=== PATIENT | female | born 1980 | race Two or more races ===

== ENCOUNTER 2019-10-27 20:40 | Inpatient (IN) | payer SELFPAY ==
[~2019-10-27] VITALS: Ht 157.5 cm; Wt 54.6 kg
--- NOTE | ~2019-10-27 | HEMODYNAMI ---
PATIENT:BEN BARNETT MEDICAL RECORD: [id number] : 82 LOCATION:D.MS [id number] ADMISSION DATE: 10/28/19 Generatedon:11/04/20199:15 Patient name: BEN BARNETT Patient #: [id number] SSN: D OB: 1980 Date of study: 11/04/2019 Page: Of Hemodynamic Procedure Report Patient Data Patient Demographics Procedure consent was obtained First Name: BEN Gender: Female Last Name: ERICKA : 1980 Patient #: [id number] Age: 39 year(s) Race: Other Additional ID: [id number] Contact details Address: [address] [place], [place] [address] State: [place] City: [place] Zip code: [address] Past Medical History Allergies: No known allergies Admission Admission Data Admission Date: 10/28/2019 Admission Time: 3:03 Room #: 2239 Height (in.): 62 BSA: 1.56 (m2) Height (cm.): 157.48 BMI: 22.68 (kg/m2) Weight (lbs.): 124 Weight (kg.): 56.25 Procedure Procedure Types Cath Procedure Peripheral Cath Diagnostic Procedure Remote Medical Coder Peripheral Procedures Abscess Abscessogram Procedure Description Procedure Date Procedure Date: 11/04/2019 Procedure Start Time: 9:06 Procedure Staff Name Function Radha Rivera MD Performing Physician Elysia Gill RT Oxygen Therapy Technician Jani CONTRERAS RN Nurse JENNIFER MENDEZ RT Scrub Procedure Data Cath Procedure Fluoroscopy Diagnostic fluoroscopy Total fluoroscopy Time: 1.3 time: 1.3 min min Diagnostic fluoroscopy Total fluoroscopy dose: 23 dose: 23 mGy mGy Contrast Material Contrast Material Type Amount (ml) Isovue 300 10 Procedure Medications Medication Administration Route Dosage Fentanyl I.V. 50 mcg Versed I.V. 1 mg Fentanyl I.V. 50 mcg Versed I.V. 1 mg Hemodynamics Rest BSA: 1.56 (m2) O2 Consumption: Estimated: 160.89 (ml/min) O2 Consumption indexed : Estimated:103.13 (ml/min/m) Heart Rate: 71 (bpm) Snapshots Pre Cath Intra NCS Post Cath Vital Signs Time Heart Resp SPO2 etCO2 NIBP (mmHg) Rhythm Pain Sedation Rate (ipm) (%) (mmHg) Status Level (bpm) 8:59:21 73 14 98 24.8 Measuring NSR 0 (11) 9(A) , No pain 8:59:43 77 7 99 34.6 124/83(108) NSR 0 (11) 9(A) , No pain 9:04:30 74 2 100 33.8 133/88(108) NSR 0 (11) 9(A) , No pain 9:08:36 80 8 100 34.5 129/89(117) NSR 0 (11) 9(A) , No pain 9:12:46 72 23 99 42.1 116/72(101) NSR 0 (11) 9(A) , No pain Medications Time Medication Route Dose Verified Delivered Reason Notes Effectivenes s by by 9:08:54 Fentanyl I.V. 50 M J Long Minner for mcg BEN sedation RN 9:09:10 Versed I.V. 1 mg M J Long Minner for BEN sedation RN 9:11:48 Fentanyl I.V. 50 M J Long Minner for mcg BEN sedation RN 9:11:52 Versed I.V. 1 mg M J Long Minner for MD BEN sedation admissions supervisor Log Time Note 8:11:35 Patient Height : 62 inches 8:11:38 Patient Weight : 124 lbs 8:12:11 Use device set IR Diagnostic 8:12:13 Tegaderm 4 x 4 ([id number]) opened to sterile field. 8:12:14 Sterile Angiographic Pack opened to sterile field. 8:12:15 Bag Decanter () opened to sterile field. 8:12:21 8:56:53 Time tracking: Regular hours (M-F 7:00 - 5:00) 8:57:05 Plan of Care:Hemodynamics will remain stable., Cardiac rhythm will remain stable., Comfort level will be maintained., Respiratory function will remain adequate., Patient/ family verbilizes understanding of procedure., Procedure tolerated without complication., Recovers from procedure without complications.. 8:57:11 Patient received from Med/Surg to IR Alert and oriented. Tansferred to table in Supine position. 8:57:13 Signed procedure consent form obtained from patient. 8:57:27 ECG and BP/O2 sat monitors applied to patient. 8:57:31 Vital chart was started 8:58:01 Baseline sample Acquired. 8:58:05 Full Disclosure recording started 8:58:06 8:58:10 H&P Date Dictated: 11/04/2019 Within 30 days and on chart.. 8:58:12 Pre-procedure instructions explained to patient. 8:58:12 Pre-op teaching completed and patient verbalized understanding. 8:58:17 Family unavailable. 8:58:19 Patient NPO since Midnight. 8:58:28 Patient allergic to No known allergies 8:58:36 Is the patient allergic to Iodine/contrast media? No. 9:00:11 Is patient on blood thinner?No 9:00:13 Patient diabetic? No. 9:00:15 9:00:16 ----Pre-sedation anethsthesia assessment.---- 9:00:19 Previous problem with sedation/anesthesia? No ? 9:00:22 Snore? No 9:00:24 Sleep apnea? No 9:00:26 Deviated septum? No 9:00:29 Opens mouth fully? Yes 9:00:31 Sticks out tongue? Yes 9:00:35 Airway obstruction? No ? 9:00:40 Dentures? No ? 9:00:42 9:00:50 Right abdomen area was prepped with chlora-prep and draped in sterile fashion 9:00:59 Left abdomen area was prepped with chlora-prep and draped in sterile fashion 9:01:00 9:05:52 GLIDE WIRE ANGLE 180cm ([id number]) opened to sterile field. 9:06:10 Physician arrived 9:06:11 --------ALL STOP TIME OUT------ 9:06:11 Final Timeout: patient, procedure, and site verified with staff and physician. All members of the team are in agreement. 9:06:24 Fire Safety Assessment: A--An alcohol-based skin anteseptic being used preoperatively., C--Open oxygen or nitrous oxide is being used. 9:06:32 Procedure started. 9:06:38 Local anesthetic to Abdominal area with Lidocaine 1% by Radha Rivera MD.INITIAL ACCESS ONLY 9:06:58 9:07:06 2) 60-89 Mildly reduced kidney function, and other findings (as for stage 1) point to kidney disease. 9:08:54 Fentanyl 50 mcg I.V. was administered by Minner BEN RN; for sedation; Verbal order read back and verified. 9:09:10 Versed 1 mg I.V. was administered by Jani CONTRERAS RN; for sedation; Verbal order read back and verified. 9:11:48 Fentanyl 50 mcg I.V. was administered by Jani CONTRERAS RN; for sedation; Verbal order read back and verified. 9:11:52 Versed 1 mg I.V. was administered by Jani CONTRERAS RN; for sedation; Verbal order read back and verified. 9:12:35 injected both drains and removed 9:12:43 Procedure ended.(Physican Out) 9:13:18 Fluoroscopy time 01.30 minutes. 9:13:25 Fluoroscopy dose: 23 mGy 9:13:25 Flurop Dose total: 23 9:13:30 Contrast amount:Isovue 300 10ml. 9:13:33 Procedure and supply charges have been captured, reviewed, submitted and are correct. 9:14:39 Report given to Med/Surg. 9:15:07 Vital chart was stopped Device Usage Item Name Manufacture Quantity Catalog Hospital Part Current Minimal Lot# / Number Charge Number Stock Stock Serial# Code Tegaderm 4 x 3M 1 [id number] (1626W) Sterile Cardinal 1 [id number] 5 Angiographic Health Pack Bag Decanter Microtek 1 2001S [id number] 5 (2001S) [employer] GLIDE WIRE Terumo 1 [id number] 5 ANGLE 180cm ([id number]) Signature Audit [place] Stage Time Signature Unsigned Intra-Procedure 11/04/2019 Elysia Gill 9:15:02 AM RT(R) [facility] [address] [place] [address]
[2019-10-27 22:36] LABS: ANION GAP 12.8 mmol/L (8-16); CALCIUM 9.2 mg/dL (8.5-10.1); CARBON DIOXIDE 29.2 mmol/L (21.0-32.0); CREATININE - SERUM 0.9 mg/dL (0.6-1.3)
[2019-10-27 22:38] LABS: HEMATOCRIT 36.7 % (36.0-48.0); HEMOGLOBIN 11.9 g/dL (12-16); MCH 26.8 pg (26.0-34.0); MCHC 32.4 g/dL (31.0-37.0); MCV 82.7 fL (80.0-100.0); MEAN PLATELET VOLUME 9.7 fL (7.4-10.4); PLATELET COUNT 799 10x3/uL (130-400); RBC 4.44 10x6/uL (4.00-5.40); RDW 14.2 % (11.5-14.5); WBC 25.5 10x3/uL (4.8-10.8)
[2019-10-27 22:42] LABS: ALBUMIN 2.5 g/dL (3.4-5.0); BILIRUBIN - TOTAL 0.54 mg/dL (0.2-1.3); PROTEIN - SERUM 9.5 g/dL (6.4-8.2)
[2019-10-27 23:11] LABS: BASOPHILS 1 % (0-2); EOSINOPHILS 1 % (0-7); LYMPHOCYTES 9 % (15-50); MONOCYTES 4 % (2-11); NEUTROPHILS 85 % (40-80); PLATELET ESTIMATE INCREASED
[2019-10-27 23:29] LABS: BILIRUBIN NEGATIVE (NEGATIVE); GLUCOSE NEGATIVE (NEGATIVE); KETONE MODERATE mg/dL (NEGATIVE); NITRITE NEGATIVE (NEGATIVE); UROBILINOGEN NORMAL (NORMAL)
[2019-10-27 23:31] LABS: BACTERIA MODERATE /hpf (NEGATIVE); EPITHELIAL CELLS 0-5 /hpf (0-5); RED CELLS - URINE 0-5 /hpf (0-5)
[2019-10-28] VITALS (8 sets, daily range): BP systolic 88–117; BP diastolic 56–87; Ht 157.5 cm; Wt 54.6 kg
--- NOTE | 2019-10-28 04:44 | NUR ---
ADMISSION ASSESSMENT AND HISTORY COMPLETE. RHIC SYSTEMS SAFETY ENGINEER PHONE IN ROOM IF NEEDED...FRIEND AT BEDSIDE THAT CAN TRANSLATE ALSO.
--- NOTE | 2019-10-28 04:45 | NUR ---
PT NPO UNTIL SEEN BY SURGEON.
[2019-10-28 06:21] LABS: APTT 35.5 SECONDS (22.8-39.4); INR 1.33 (0.85-1.17); PROTIME 16.4 SECONDS (11.6-15.0)
[2019-10-28 06:24] LABS: CALC OSMOLALITY 276 mosm/kg (275-300); CALCIUM 7.3 mg/dL (8.5-10.1); CARBON DIOXIDE 27.2 mmol/L (21.0-32.0); CHLORIDE - SERUM 102 mmol/L (98-107); CREATININE - SERUM 0.7 mg/dL (0.6-1.3); GLUCOSE 130 mg/dL (74-106); MAGNESIUM - SERUM 2.4 mg/dL (1.8-2.4); PHOSPHOROUS 4.4 mg/dL (2.5-4.9); POTASSIUM - SERUM 3.9 mmol/L (3.5-5.1); SODIUM 138 mmol/L (136-145); UREA NITROGEN 9 mg/dL (7-18); eGFR NON AFRICAN AMERICAN > 90 mL/min (90-120)
[2019-10-28 06:28] LABS: BASOPHILS 0.2 % (0-2); EOSINOPHILS 0 % (0-7); HEMOGLOBIN 9.3 g/dL (12-16); IMMATURE GRANULOCYTES 1.6 % (0-5); LYMPHOCYTES 10.3 % (15-50); MCH 26.4 pg (26.0-34.0); MCHC 32.1 g/dL (31.0-37.0); MCV 82.4 fL (80.0-100.0); MEAN PLATELET VOLUME 9.5 fL (7.4-10.4); MONOCYTES 7.9 % (2-11); PLATELET COUNT 648 10x3/uL (130-400); RBC 3.52 10x6/uL (4.00-5.40); RDW 14.4 % (11.5-14.5)
--- NOTE | 2019-10-28 07:47 | NUR ---
ALERT AND ORIENTED. LUNGS CLEAR BILATERALLY. HEART SOUNDS S1 AND S2 HEARD IN ALL PARRA. BOWEL SOUNDS ACTIVE X 4. IV TO LFA PATENT WITHOUT REDNESS. DENIES NEEDS. BED LOW. CALL GANDARA AND PERSONAL ITEMS IN REACH. WILL CONTINUE TO MONITOR.
--- NOTE | 2019-10-28 09:57 | NUR ---
CONSENTS OBTAINED FOR BLOOD. PATIENT AND FRIEND AT BEDSIDE DENY FURTHER QUESTIONS.
--- NOTE | 2019-10-28 10:46 | NUR ---
BLOOD TRANSFUSION UNIT 1 INITIATED. VITALS STABLE.
--- NOTE | 2019-10-28 13:45 | NUR ---
BLOOD TRANSFUSION UNIT 1 COMPLETE. VITALS STABLE.
--- NOTE | 2019-10-28 13:50 | NUR ---
BLOOD TRANSFUSION UNIT 2 INTIATED. VITALS STABLE.
--- NOTE | 2019-10-28 17:17 | NUR ---
BLOOD TRANSFUSION UNIT 2 COMPLETE. VITALS STABLE.
--- NOTE | 2019-10-28 21:12 | NUR ---
WAS MEDICATED WITH MORPHINE FOR C/O ABD PAIN. C/L IN REACH AT BEDSIDE.
[2019-10-29] VITALS (12 sets, daily range): BP systolic 83–107; BP diastolic 53–69
[2019-10-29 05:45] LABS: HEMATOCRIT 36.6 % (36.0-48.0); HEMOGLOBIN 11.9 g/dL (12-16); MCH 27.4 pg (26.0-34.0); MCHC 32.5 g/dL (31.0-37.0); MCV 84.1 fL (80.0-100.0); MEAN PLATELET VOLUME 9.1 fL (7.4-10.4); PLATELET COUNT 592 10x3/uL (130-400); RBC 4.35 10x6/uL (4.00-5.40); RDW 14.6 % (11.5-14.5); WBC 24.5 10x3/uL (4.8-10.8)
[2019-10-29 05:53] LABS: ANION GAP 12.7 mmol/L (8-16); CALCIUM 7.8 mg/dL (8.5-10.1); CARBON DIOXIDE 25.9 mmol/L (21.0-32.0); MAGNESIUM - SERUM 1.9 mg/dL (1.8-2.4); PHOSPHOROUS 3.5 mg/dL (2.5-4.9); POTASSIUM - SERUM 3.6 mmol/L (3.5-5.1)
[2019-10-29 05:54] LABS: CREATININE - SERUM 0.9 mg/dL (0.6-1.3)
--- NOTE | 2019-10-29 07:24 | NUR ---
I have reviewed this patient and I concur with the Shift Assessment completed by the Licensed Practical Nurse today this shift.
[2019-10-29 08:03] LABS: APTT 37.8 SECONDS (22.8-39.4); INR 1.23 (0.85-1.17); PROTIME 15.4 SECONDS (11.6-15.0)
[2019-10-29 08:06] LABS: HCG SERUM NEGATIVE (NEGATIVE)
[2019-10-29 08:24] LABS: LYMPHOCYTES 13 % (15-50); MONOCYTES 4 % (2-11); NEUTROPHILS 81 % (40-80); PLATELET ESTIMATE INCREASED
--- NOTE | 2019-10-29 09:21 | NUR ---
PT IS OUT TO IR.
--- NOTE | 2019-10-29 11:04 | NUR ---
PT BACK FROM IR WITH BILAT PELVIC DRAINS. RESTING COMFORTALY, FREQUENT VITALS, WHICH ARE CURRENTLY STABLE. TAKING IN CLEAR LIQUIDS, TOLERATING. DRESSINGS C/D/I. DENIESE ANY NEEDS. WILL CONTINUE TO MONITOR.
--- NOTE | 2019-10-29 14:29 | NUR ---
EMPTIED 125 ML OF PURLUENT BROWN LIQUID FROM LEFT DRAIN 175 ML OF PURLUENT BROWN LIQUID FROM RIGHT DRAIN. FLUSHED EACH DRAIN WITH 10 CC FLUSH PER ORDER. PT RESTING COMFORTABLY IN BED. DENIES ANY NEEDS. WILL CONTINUE TO MONITOR. REMOVED IV FROM LEFT UPPER ARM DUE TO PAIN PER PT STATEMENT. CATHETER TIP INTACT. NEW 18 GA STARTED IN THE RIGHT HAND. TOLERATED WELL
--- NOTE | 2019-10-29 15:40 | NUR ---
PT ALERT AND ORIENTED UPON ENTERING. ASSISTED PT TO BATHROOM AND BACK TO BED, MINIMAL ASIST. ADMINISTERED IV MEDICATION AND PRN TYLENOL FOR INCISION PAIN. DENIES ANY OTHER NEEDS. LEFT RESTING COMFORTABLY. WILL CONTINUE TO MONITOR.
--- NOTE | 2019-10-29 17:29 | NUR ---
HUNG IV ABX, RESTING COMFORTABLY. DENIES ANY NEEDS. WILL CONTINUE TO MONITOR.
--- NOTE | 2019-10-29 19:40 | NUR ---
AMBULATING TO BR TO VOID. DRAIN NOTED TO RT AND LT ABD WITH BLOODY/BROWN DRAINAGE IN BAG. DENIES PAIN. DRSGS INTACT. GEN WEAKNESS NOTED. NS @ 100 MLHR INFUSING IN RT HAND. RESP EVEN AND NONLABORED. NO DISTRESS. ALERT AND ORIENTED X4. SR ELEVATED X2. CL IN REACH.
--- NOTE | 2019-10-30 04:58 | NUR ---
LYING IN BED. DENIES PAIN. NO DISTRESS. CL IN REACH.
[2019-10-30 05:39] LABS: BASOPHILS 0.2 % (0-2); EOSINOPHILS 0.1 % (0-7); HEMATOCRIT 32.4 % (36.0-48.0); HEMOGLOBIN 10.5 g/dL (12-16); IMMATURE GRANULOCYTES 1.2 % (0-5); LYMPHOCYTES 10.3 % (15-50); MCH 27.1 pg (26.0-34.0); MCHC 32.4 g/dL (31.0-37.0); MCV 83.7 fL (80.0-100.0); MEAN PLATELET VOLUME 9.3 fL (7.4-10.4); MONOCYTES 5.9 % (2-11); NEUTROPHILS 82.3 % (40-80); PLATELET COUNT 648 10x3/uL (130-400); RBC 3.87 10x6/uL (4.00-5.40); RDW 14.8 % (11.5-14.5); WBC 22.1 10x3/uL (4.8-10.8)
[2019-10-30 06:30] LABS: ANION GAP 10.6 mmol/L (8-16); CALCIUM 7.7 mg/dL (8.5-10.1); CARBON DIOXIDE 28.2 mmol/L (21.0-32.0); CREATININE - SERUM 1.1 mg/dL (0.6-1.3); MAGNESIUM - SERUM 1.8 mg/dL (1.8-2.4)
[2019-10-30 06:35] LABS: PHOSPHOROUS 2.3 mg/dL (2.5-4.9)
[2019-10-30 06:37] LABS: POTASSIUM - SERUM 2.8 mmol/L (3.5-5.1)
[2019-10-30 08:00] VITALS: BP 101/59
[2019-10-30 12:00] VITALS: BP 103/61
[2019-10-30 15:32] VITALS: BP 94/64
[2019-10-30 20:00] VITALS: BP 109/66
--- NOTE | 2019-10-30 20:00 | NUR ---
LYING IN BED. ALERT AND ORIENTED X4. RESP NONLABORED. PELVIS IS TENDER. DRAIN NOTED TO LT AND RT LOWER PELVIS HAS SEROSANGUINEOUS FLUID IN DRAINAGE BAG. AMBULATORY. DENIES PAIN. NS @ 100 MLHR INFUSING IN RT HAND. SR ELEVATED X2. CL IN REACH.
[2019-10-31 04:00] VITALS: BP 99/54
--- NOTE | 2019-10-31 05:08 | NUR ---
HASNT RESTED MUCH TONIGHT. NO DISTRESS. DENIES NEEDS. CL IN REACH.
[2019-10-31 05:36] LABS: BASOPHILS 0.1 % (0-2); EOSINOPHILS 0.3 % (0-7); HEMATOCRIT 33.6 % (36.0-48.0); HEMOGLOBIN 10.6 g/dL (12-16); IMMATURE GRANULOCYTES 1.6 % (0-5); LYMPHOCYTES 14.4 % (15-50); MCH 26.8 pg (26.0-34.0); MCHC 31.5 g/dL (31.0-37.0); MCV 85.1 fL (80.0-100.0); MEAN PLATELET VOLUME 9.2 fL (7.4-10.4); MONOCYTES 5.9 % (2-11); NEUTROPHILS 77.7 % (40-80); PLATELET COUNT 689 10x3/uL (130-400); RBC 3.95 10x6/uL (4.00-5.40); RDW 15.2 % (11.5-14.5); WBC 17.5 10x3/uL (4.8-10.8)
[2019-10-31 05:55] LABS: ANION GAP 11.7 mmol/L (8-16); CALCIUM 8.2 mg/dL (8.5-10.1); CARBON DIOXIDE 23.6 mmol/L (21.0-32.0); CREATININE - SERUM 1.1 mg/dL (0.6-1.3); MAGNESIUM - SERUM 1.7 mg/dL (1.8-2.4); PHOSPHOROUS 2.5 mg/dL (2.5-4.9); POTASSIUM - SERUM 3.3 mmol/L (3.5-5.1)
--- NOTE | 2019-10-31 07:29 | NUR ---
ALERT AND ORIENTED. LUNGS CLEAR BILATERALLY. HEART SOUNDS S1 AND S2 HEARD IN ALL PARRA. BOWEL SOUNDS ACTIVE X 4. IV TO RIGHT HAND PATENT WIHTOUT REDNESS. BILATERAL DRAINS TO ABD PATENT. DENIES NEEDS. BED LOW. CALL GANDARA AND PERSONAL ITEMS IN REACH. WILL CONTINUE TO MONITOR.
[2019-10-31 09:26] VITALS: BP 109/72
--- NOTE | 2019-10-31 12:40 | NUR ---
RESTING IN BED. DENIES NEEDS. WILL CONTINUE TO MONITOR.
[2019-10-31 12:56] VITALS: BP 111/74
--- NOTE | 2019-10-31 14:57 | NUR ---
NUTRITION F/U DIET ADVANCED TO REG TOLERATED. PT WITH ~ 50% INTAKE RECENT MEALS. WILL HONOR FOOD PREFERENCES, MONITOR PO INTAKE. RD FOLLOWING
--- NOTE | 2019-10-31 15:20 | NUR ---
IV OCCLUDED TO RIGHT HAND. REMOVED WITH TIP INTACT. RESITED TO [facility].
[2019-10-31 17:22] VITALS: BP 99/66
[2019-10-31 21:48] VITALS: BP 158/72
[2019-11-01 07:24] LABS: BASOPHILS 0.2 % (0-2); EOSINOPHILS 0.5 % (0-7); HEMATOCRIT 34.7 % (36.0-48.0); HEMOGLOBIN 10.8 g/dL (12-16); IMMATURE GRANULOCYTES 2.1 % (0-5); LYMPHOCYTES 16.8 % (15-50); MCH 26.9 pg (26.0-34.0); MCHC 31.1 g/dL (31.0-37.0); MCV 86.3 fL (80.0-100.0); MEAN PLATELET VOLUME 9.2 fL (7.4-10.4); MONOCYTES 6.3 % (2-11); NEUTROPHILS 74.1 % (40-80); PLATELET COUNT 725 10x3/uL (130-400); RBC 4.02 10x6/uL (4.00-5.40); RDW 15.5 % (11.5-14.5); WBC 14.2 10x3/uL (4.8-10.8)
[2019-11-01 08:18] LABS: CALC OSMOLALITY 276 mosm/kg (275-300); CALCIUM 8.6 mg/dL (8.5-10.1); CARBON DIOXIDE 24.9 mmol/L (21.0-32.0); CHLORIDE - SERUM 107 mmol/L (98-107); GLUCOSE 110 mg/dL (74-106); MAGNESIUM - SERUM 1.8 mg/dL (1.8-2.4); POTASSIUM - SERUM 3.5 mmol/L (3.5-5.1); SODIUM 140 mmol/L (136-145); UREA NITROGEN 5 mg/dL (7-18); eGFR NON AFRICAN AMERICAN 85 mL/min (90-120)
[2019-11-01 08:22] LABS: CREATININE - SERUM 0.8 mg/dL (0.6-1.3); PHOSPHOROUS 3.6 mg/dL (2.5-4.9)
--- NOTE | 2019-11-01 08:45 | NUR ---
PT ALERT AND ORIENTED X4 UPON ENTERING. ADMINISTERED MEDICAITON, NO DIFFICULTIES. ASSESSMENT PERFORMED AT THIS TIME. DENIES ANY NEEDS. BED IN LOWEST POSITION, BED RAILS X2, CALL LIGHT WITHIN REACH. WILL CONTINUE TO MONITOR.
[2019-11-01 10:10] VITALS: BP 107/78
--- NOTE | 2019-11-01 10:54 | NUR ---
HUNG IV ABX, TOLERATING WELL. RESTING COMFORTABLY IN BED. DENIES ANY NEEDS. WILL CONTINUE TO MONITOR.
[2019-11-01 13:25] VITALS: BP 110/78
--- NOTE | 2019-11-01 14:03 | NUR ---
I have reviewed this patient and I concur with the Shift Assessment completed by the Licensed Practical Nurse today this shift.
--- NOTE | 2019-11-01 15:41 | NUR ---
LEFT FOREARM IV INFILTRATED. REMOVED WITH CATHETERT TIP INTACT. COVERED WITH GAUZED AND TAPE. TOLERATED WELL. PLACED WARM RAG ON PT ARM. DENIES ANY OTHER NEEDS. WILL RESITE IV.
[2019-11-01 17:02] VITALS: BP 109/61
--- NOTE | 2019-11-01 17:57 | NUR ---
2 UNSUCCESSFUL ATTEMPTS, WILL GET ANOTHER NURSE TO TRY. DENIES ANY NEEDS. WILL CONTINUE TO MONITOR.
--- NOTE | 2019-11-01 18:28 | NUR ---
IV STARTED TO THE LEFT FOREARM, IV ABX STARTED. RESTING COMFORTABLY IN BED. DENIES ANY NEEDS. WILL CONTINUE TO MONITOR.
--- NOTE | 2019-11-01 19:51 | NUR ---
ADMINISTERED MEDICATION, UPRIGHT AT BEDSIDE. DENIES ANY NEEDS.
[2019-11-01 21:00] VITALS: BP 106/71
[2019-11-02 07:15] VITALS: BP 109/73
--- NOTE | 2019-11-02 08:08 | NUR ---
PT RESTING IN BED WITH EYES OPEN, ALERT AND ORIENTED WITH NO S/S OF DISTRESS AT THIS TIME. IV LOCATED TO LEFT FOREARM RUNNING NS @ 100ML. DENIES CURRENT NEEDS, WILL CONT TO MONITOR.
[2019-11-02 08:46] LABS: BASOPHILS 0.1 % (0-2); EOSINOPHILS 0.4 % (0-7); HEMATOCRIT 37.2 % (36.0-48.0); HEMOGLOBIN 11.7 g/dL (12-16); IMMATURE GRANULOCYTES 1.9 % (0-5); LYMPHOCYTES 15.5 % (15-50); MCHC 31.5 g/dL (31.0-37.0); MCV 85.9 fL (80.0-100.0); MEAN PLATELET VOLUME 9.1 fL (7.4-10.4); MONOCYTES 5.8 % (2-11); NEUTROPHILS 76.3 % (40-80); PLATELET COUNT 698 10x3/uL (130-400); RBC 4.33 10x6/uL (4.00-5.40); RDW 15.3 % (11.5-14.5); WBC 14.5 10x3/uL (4.8-10.8)
[2019-11-02 12:04] VITALS: BP 107/71
--- NOTE | 2019-11-02 13:53 | NUR ---
FLUSHED DRAINS X 2 WITH 10ML OF SALINE. NO S/S OF DISTRESS, PT DENIES NEEDS, WILL CONT TO MONITOR.
[2019-11-02 14:23] LABS: ALBUMIN 1.9 g/dL (3.4-5.0); ALKALINE PHOSPHATASE 96 U/L (30-120); ALT (SGPT) 11 U/L (10-68); BILIRUBIN - TOTAL 0.24 mg/dL (0.2-1.3); CALC OSMOLALITY 281 mosm/kg (275-300); CALCIUM 8.9 mg/dL (8.5-10.1); CARBON DIOXIDE 26.9 mmol/L (21.0-32.0); CHLORIDE - SERUM 108 mmol/L (98-107); CREATININE - SERUM 0.7 mg/dL (0.6-1.3); GLUCOSE 94 mg/dL (74-106); PROTEIN - SERUM 6.7 g/dL (6.4-8.2); SODIUM 143 mmol/L (136-145); UREA NITROGEN 5 mg/dL (7-18); eGFR NON AFRICAN AMERICAN > 90 mL/min (90-120)
[2019-11-02 15:48] VITALS: BP 106/64
[2019-11-02 20:00] VITALS: BP 109/72
[2019-11-03] VITALS: BP 104/69
[2019-11-03 04:00] VITALS: BP 115/78
--- NOTE | 2019-11-03 04:28 | NUR ---
LATE ENTRY: 10/27: STOP TIME CLINDAMYCIN [id number]
--- NOTE | 2019-11-03 07:15 | NUR ---
RECEIVE BEDSIDE SHIFT REPORT. RESTING IN BED WITH EYES CLOSED. NO SIGNS OF DISTRESS. WILL CONTINUE PLAN OF CARE AND SAFETY PRECAUTIONS. STOCK PREPARER PHONE AT BEDSIDE IF NEEDED.
[2019-11-03 07:44] LABS: ALBUMIN 1.9 g/dL (3.4-5.0); ALKALINE PHOSPHATASE 87 U/L (30-120); ALT (SGPT) 12 U/L (10-68); BASOPHILS 0.2 % (0-2); CALC OSMOLALITY 282 mosm/kg (275-300); CALCIUM 8.4 mg/dL (8.5-10.1); CARBON DIOXIDE 28.8 mmol/L (21.0-32.0); CHLORIDE - SERUM 107 mmol/L (98-107); CREATININE - SERUM 0.7 mg/dL (0.6-1.3); GLUCOSE 104 mg/dL (74-106); HEMATOCRIT 35.4 % (36.0-48.0); HEMOGLOBIN 11.1 g/dL (12-16); IMMATURE GRANULOCYTES 1.8 % (0-5); LYMPHOCYTES 19.8 % (15-50); MAGNESIUM - SERUM 1.6 mg/dL (1.8-2.4); MCHC 31.4 g/dL (31.0-37.0); MCV 86.1 fL (80.0-100.0); MEAN PLATELET VOLUME 9.5 fL (7.4-10.4); MONOCYTES 6.1 % (2-11); NEUTROPHILS 71.1 % (40-80); PLATELET COUNT 663 10x3/uL (130-400); POTASSIUM - SERUM 4.4 mmol/L (3.5-5.1); PROTEIN - SERUM 5.7 g/dL (6.4-8.2); RBC 4.11 10x6/uL (4.00-5.40); RDW 15.3 % (11.5-14.5); SODIUM 143 mmol/L (136-145); UREA NITROGEN 6 mg/dL (7-18); WBC 11.9 10x3/uL (4.8-10.8); eGFR NON AFRICAN AMERICAN > 90 mL/min (90-120)
[2019-11-03 08:37] VITALS: BP 120/81
[2019-11-03 12:00] VITALS: BP 112/71
[2019-11-03 13:55] LABS: INR 1.16 (0.85-1.17); PROTIME 14.7 SECONDS (11.6-15.0)
[2019-11-03 13:56] LABS: APTT 39.6 SECONDS (22.8-39.4)
--- NOTE | 2019-11-03 14:55 | MORECARE ---
CASE MANAGEMENT DISCHARGE SUMMARY PATIENT: BEN BARNETT UNIT: [id number] ADM DATE: 10/28/19 AGE: 39 : [birth year] SEX: F ROOM/BED: D.2239 AUTHOR: KAYLEE MANDEL PHYSICIAN: REFERRING PHYSICIAN: KAMARI BULLARD DO DATE OF SERVICE: 11/03/19 Discharge Plan Patient Name: BEN BARNETT Facility: [facility]:[place] : 1980 Planned Disposition: Home Anticipated Discharge Date: Discharge Date: Expected LOS: Initial Reviewer: [email or web address] Initial Review Date: 11/03/2019 Generated: 11/03/19 3:55 pm Comments DCP- Discharge Planning Updated by [email or web address]: Sujata Rodriguez on 11/03/19 1:[address] Patient Name: BEN BARNETT Admission Status: ER Accout number: [id number] Admission Date: 10-28-2019 : 1980 Admission Diagnosis:SALPINGITIS AND OOPHORITIS, UNSPECIFIED Attending: KAMARI BULLARD Current LOS: 6 Anticipated DC Date: Planned Disposition: Home Primary Insurance: UNINSURED DISCOUNT PLAN Discharge Planning Comments: CM met with patient at bedside after explaining CM role and obtaining verbal consent. CM discussed availability / needs of home health, REHAB and medical equipment. PATIENT DENIES ANY DISCHARGE NEEDS. ANTICIPATE DRAIN REMOVAL TOMORROW. CM TO FOLLOW AND ASSIST NEEDED. Inside Outside Sales Representative: Sujata Rodriguez DCPIA - Discharge Planning Initial Assessment Updated by [email or web address]: Sujata Rodriguez on 11/03/19 2:54 pm * Is the patient Alert and Oriented? Yes * PCP [facility] * Pharmacy [facility] * Preadmission Environment Home Alone * ADLs Independent * Additional services required to return to the preadmission environment? No * Can the patient safely return to the preadmission environment? Yes * Has this patient been hospitalized within the prior 30 days at any hospital? No Patient Name: BEN BARNETT Page [id number] at 6432 All edits/amendments must be made on the electronic document DICTATION DATE: 11/03/19 9832 HOSPITAL LABORATORY TECHNICIAN: SALBADOR 11/03/19 1451 RPT#: [id number] DC DATE: STATUS: ADM IN [facility] [address] [place] [address] END OF REPORT
--- NOTE | 2019-11-03 14:58 | NUR ---
D/C LEFT FOREARM IV DUE TO INFILTRATION, TIP INTACT. WILL TRY AGAIN FOR A NEW IV.
[2019-11-03 15:58] LABS: BASOPHILS 0.2 % (0-2); EOSINOPHILS 0.7 % (0-7); HEMATOCRIT 37.2 % (36.0-48.0); HEMOGLOBIN 11.9 g/dL (12-16); IMMATURE GRANULOCYTES 2.3 % (0-5); LYMPHOCYTES 15.4 % (15-50); MCH 27.5 pg (26.0-34.0); MCV 85.9 fL (80.0-100.0); MEAN PLATELET VOLUME 9.3 fL (7.4-10.4); MONOCYTES 6.3 % (2-11); NEUTROPHILS 75.1 % (40-80); PLATELET COUNT 677 10x3/uL (130-400); RBC 4.33 10x6/uL (4.00-5.40); RDW 15.2 % (11.5-14.5); WBC 13.8 10x3/uL (4.8-10.8)
[2019-11-03 16:00] VITALS: BP 99/64
[2019-11-03 16:22] LABS: CALC OSMOLALITY 277 mosm/kg (275-300); CARBON DIOXIDE 30.5 mmol/L (21.0-32.0); CHLORIDE - SERUM 104 mmol/L (98-107); CREATININE - SERUM 0.7 mg/dL (0.6-1.3); GLUCOSE 116 mg/dL (74-106); SODIUM 140 mmol/L (136-145); UREA NITROGEN 7 mg/dL (7-18); eGFR NON AFRICAN AMERICAN > 90 mL/min (90-120)
--- NOTE | 2019-11-03 17:25 | NUR ---
SITED NEW IV 20 GUAGE IN LEFT FOREARM FOR ANTIBIOTICS AND PROCEDURE TOMORROW. PREVIOUS IV INFILTRATED.
--- NOTE | 2019-11-03 20:00 | NUR ---
PT STATES DR DID NOT TALK TO HER ABOUT ANY UPCOMING PROCEDURES. PT REQUESTS TO WAIT TO SIGN CONSENTS UNTIL DR SPEAKS WITH HER AND FAMILY MEMBER(ON PHONE). PT DID VERBALIZE UNDERSTANDING ON NPO STATUS AFTER MIDNIGHT. PT REPORTS TEENDERNESS WHILE IV INFUSING. SKIN SURROUNDING IV WNL, NO SELLING/REDNESS. 10ML SALINE FLUSHES WITH EASE. IV FLUIDS REDUCED TO 75. PT REPORTS RELIEF. CTM.
[2019-11-03 20:55] VITALS: BP 100/70
[2019-11-04 01:48] VITALS: BP 104/72
--- NOTE | 2019-11-04 02:57 | NUR ---
I have reviewed this patient and I concur with the Shift Assessment completed by the Licensed Practical Nurse today this shift.
[2019-11-04 04:30] VITALS: BP 103/61
[2019-11-04 06:18] LABS: BASOPHILS 0.4 % (0-2); EOSINOPHILS 1.2 % (0-7); HEMATOCRIT 35.9 % (36.0-48.0); HEMOGLOBIN 11.3 g/dL (12-16); IMMATURE GRANULOCYTES 2.1 % (0-5); LYMPHOCYTES 18.8 % (15-50); MCH 27.1 pg (26.0-34.0); MCHC 31.5 g/dL (31.0-37.0); MCV 86.1 fL (80.0-100.0); MEAN PLATELET VOLUME 9.3 fL (7.4-10.4); NEUTROPHILS 69.5 % (40-80); PLATELET COUNT 669 10x3/uL (130-400); RBC 4.17 10x6/uL (4.00-5.40); RDW 15.3 % (11.5-14.5)
[2019-11-04 06:38] LABS: INR 1.22 (0.85-1.17); PROTIME 15.3 SECONDS (11.6-15.0)
[2019-11-04 06:55] LABS: ALKALINE PHOSPHATASE 90 U/L (30-120); ALT (SGPT) 15 U/L (10-68); BILIRUBIN - TOTAL 0.14 mg/dL (0.2-1.3); CALC OSMOLALITY 277 mosm/kg (275-300); CARBON DIOXIDE 30.4 mmol/L (21.0-32.0); CHLORIDE - SERUM 105 mmol/L (98-107); CREATININE - SERUM 0.8 mg/dL (0.6-1.3); GLUCOSE 110 mg/dL (74-106); MAGNESIUM - SERUM 1.8 mg/dL (1.8-2.4); POTASSIUM - SERUM 3.8 mmol/L (3.5-5.1); PROTEIN - SERUM 6.7 g/dL (6.4-8.2); SODIUM 140 mmol/L (136-145); UREA NITROGEN 8 mg/dL (7-18); eGFR NON AFRICAN AMERICAN 85 mL/min (90-120)
--- NOTE | 2019-11-04 07:15 | NUR ---
WALKING ROUNDS COMPLETE, PT IS NPO FOR PROCEDURE TODAY, VERBALIZED UNDERSTANDING, IV INFUSING WITHOUT DIFFICULTY, SITE CLEAR, PT DENIES PAIN OR NEEDS AT THIS TIME, WILL MONITOR
[2019-11-04 08:09] VITALS: BP 116/76
--- NOTE | 2019-11-04 08:38 | NUR ---
PT BEING TAKEN TO IR VIA BED,
--- NOTE | 2019-11-04 09:25 | NUR ---
PT BACK TO ROOM, VITALS STABLE, PT DENIES PAIN OR NEEDS, DRESSING DRY AND SECURE TO ARGELIA ABD SITES, IV INFUSING WITHOUT DIFFICULTY, SITE CLEAR, SR UX2, CALL LIGHT IN REACH, WILL MONITOR
--- NOTE | 2019-11-04 10:29 | NUR ---
PT RESTING IN BED WITH EYES CLOSED, NO S/S OF PAIN OR NEEDS NOTED, WILL MONITOR
[2019-11-04 12:54] VITALS: BP 111/74
[2019-11-04] MEDS ORDERED: AUGMENTIN 875-11 TAB PO (14:20)
[2019-11-04] MEDS ORDERED: MONODOX100 MG PO (14:20)
--- NOTE | 2019-11-04 14:51 | NUR ---
Nutrition follow-up: Pt NPO for procedure today PO intake of regular diet has been ~50% Labs reviewed WT: 120# +BM RDN will monitor patients diet advancement and tolerance.
--- NOTE | 2019-11-04 19:30 | NUR ---
PTs FAMILY/FRIEND AT BEDSIDE. DISCHARGE INSTRUCTIONS GIVEN. LEFT FOREARM IV DCd WITH CATH INTACT. NO FURTHER NEEDS, PT GATHERED ALL BELONGINGS AND WAS TAKEN OUT ER ENTRANCE VIA WHEELCHAIR.
--- NOTE | 2019-11-06 09:01 | MORECARE ---
CASE MANAGEMENT DISCHARGE SUMMARY PATIENT: BEN BARNETT UNIT: [id number] ADM DATE: 10/28/19 AGE: 39 : 81 SEX: F ROOM/BED: D.2239 AUTHOR: KAYLEE MANDEL PHYSICIAN: REFERRING PHYSICIAN: KAMARI BULLARD DO DATE OF SERVICE: 11/06/19 Discharge Plan Patient Name: BEN BARNETT Facility: [facility]:[place] : 1980 Planned Disposition: Home Anticipated Discharge Date: Discharge Date: 11/04/2019 Expected LOS: Initial Reviewer: [email or web address] Initial Review Date: 11/03/2019 Generated: 11/06/19 10:00 am Comments DCP- Discharge Planning Updated by [email or web address]: Sujata Rodriguez on 11/03/19 1:[address] Patient Name: BEN BARNETT Admission Status: ER Accout number: [id number] Admission Date: 10-28-2019 : 1980 Admission Diagnosis:SALPINGITIS AND OOPHORITIS, UNSPECIFIED Attending: KAMARI BULLARD Current LOS: 6 Anticipated DC Date: Planned Disposition: Home Primary Insurance: UNINSURED DISCOUNT PLAN Discharge Planning Comments: CM met with patient at bedside after explaining CM role and obtaining verbal consent. CM discussed availability / needs of home health, REHAB and medical equipment. PATIENT DENIES ANY DISCHARGE NEEDS. ANTICIPATE DRAIN REMOVAL TOMORROW. CM TO FOLLOW AND ASSIST NEEDED. Custom Shop Worker: Sujata Rodriguez DCPIA - Discharge Planning Initial Assessment Updated by [email or web address]: Sujata Rodriguez on 11/03/19 2:54 pm * Is the patient Alert and Oriented? Yes * PCP [facility] * Pharmacy [facility] * Preadmission Environment Home Alone * ADLs Independent * Additional services required to return to the preadmission environment? No * Can the patient safely return to the preadmission environment? Yes * Has this patient been hospitalized within the prior 30 days at any hospital? No Last DP export: 11/03/19 1:55 p Patient Name: BEN BARNETT Page [id number] at 0901 All edits/amendments must be made on the electronic document DICTATION DATE: 11/06/19899 GERONTOLOGICAL NURSE PRACTITIONER: SALBADOR 11/06/19899 RPT#: [id number] DC DATE:11/04/19 STATUS: DIS IN [facility] [address] [place] [address] END OF REPORT
== END 2019-11-04 20:02 | disposition home or self-care (01) | DRG 758 ==
LOC: D.ER 20:40 → D.MS 10-28 03:03
PROVIDERS: Family Medicine; Obstetrics & Gynecology; Radiology Diagnostic Radiology; Radiology Vascular & Interventional Radiology; ADMIT Family Medicine; ATTEND Family Medicine
PROC: 0J9C30Z Drainage of Pelvic Region Subcutaneous Tissue and Fascia with Drainage Device, Percutaneous Approach (ICD-10-PCS; principal; 2019-10-29 09:30)
DX: N70.93 Salpingitis and oophoritis, unspecified (principal); N39.0 Urinary tract infection, site not specified; E87.1 Hypo-osmolality and hyponatremia; K56.609 Unspecified intestinal obstruction, unspecified as to partial versus complete obstruction; D64.9 Anemia, unspecified; D47.3 Essential (hemorrhagic) thrombocythemia